=== PATIENT | male | born 1945 | race Asian ===

== ENCOUNTER 2019-09-13 08:15 | Emergency (ER) | payer OTHER ==
[~2019-09-13] VITALS: Ht 170.2 cm; Wt 59.0 kg
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
--- NOTE | 2019-09-13 08:35 | NUR ---
dr ornelas at bedside
--- NOTE | 2019-09-13 08:52 | NUR ---
wheeled out via [place] for ct scan
[2019-09-13] MEDS ORDERED: ACETAMINOPHEN ES 500 MG TABLET ONE (08:56)
--- NOTE | 2019-09-13 08:58 | NUR ---
and son at bedside
[2019-09-13] MEDS ORDERED: ACETAMINOPHEN ES 500 MG TABLET PO ONE (09:00)
[2019-09-13] MEDS ORDERED: ONDANSETRON 4 MG TAB.RAPDIS SL ONE (10:00)
[2019-09-13] MEDS ORDERED: MORPHINE SULFATE INJ 2 MG/ML DISP.SYRIN IM ONE (10:00)
[2019-09-13] MEDS ORDERED: ONDANSETRON 4 MG TAB.RAPDIS ONE (10:20)
[2019-09-13] MEDS ORDERED: MORPHINE SULFATE INJ 4 MG/ML DISP.SYRIN ONE (10:20)
[2019-09-13] MEDS ORDERED: IV NS 0.9% 500 ML BAG IV ONE (11:30)
--- NOTE | 2019-09-13 12:06 | NUR ---
Patient discharged to home with daughter in stable condition. Written and verbal after care instructions given. Patient verbalizes understanding of instruction.
[2019-09-13 12:08] VITALS: BP 148/80
== END 2019-09-13 12:08 | disposition home or self-care (01) ==
LOC: ER 08:17
DX: S42.142A Displaced fracture of glenoid cavity of scapula, left shoulder, initial encounter for closed fracture (principal); S22.42XA Multiple fractures of ribs, left side, initial encounter for closed fracture; S09.8XXA Other specified injuries of head, initial encounter; I10 Essential (primary) hypertension; E78.00 Pure hypercholesterolemia, unspecified; Z60.2 Problems related to living alone; V09.9XXA Pedestrian injured in unspecified transport accident, initial encounter; Y93.89 Activity, other specified; Y92.89 Other specified places as the place of occurrence of the external cause; Y99.8 Other external cause status
CPT/HCPCS: 70450; 71250; 73030; 73200; 73552; 73560; 93005; 96372; 99284; J2270; Q0162